=== PATIENT | female | born 1990 | race African-American/Black ===

== ENCOUNTER 2021-01-19 09:53 | Outpatient (CLI) | payer SELFPAY ==
[2021-01-19 10:22] LABS: #Basophils 0.1 thou/uL (0.0-0.2); #Eosinphils 0.1 thou/uL (0.0-0.7); #Lymphocytes 2.5 thou/uL (1.20-3.40); #Monocytes 0.6 thou/uL (0.11-0.59); %Basophils 1.1 % (0.0-1.0); %Eosinophils 1.3 % (0.0-10.0); %Lymphocytes 30.3 % (21.0-51.0); %Monocytes 7.4 % (0.0-10.0); %Neutrophils 59.9 % (42.0-75.0); Hemoglobin 13.5 g/dL (12.0-16.0); Mean Corpuscular HGB CONC 31.3 g/dL (32.0-36.0); Mean Corpuscular Hemoglobin 30.2 pg (27.0-31.0); Mean Corpuscular Volume 96.4 fL (78.0-98.0); Mean Platelet Volume 8.4 fL (7.4-10.4); Platelet Count 320 thou/uL (130-400); RBC Distribution Width 12.3 % (11.5-14.5); Red Blood Cell (RBC) Count 4.47 mill/uL (4.20-5.40); White Blood Cell (WBC) Count 8.3 thou/uL (4.8-10.8)
[2021-01-19 10:24] LABS: Bilirubin Negative (Negative); Blood, Urine Trace (Negative); Glucose, Urine (Dipstick) Negative (Negative); Ketone, Urine Negative (Negative); Leukocyte Small (Negative); Nitrite Negative (Negative); Protein, Urine (Dipstick) Negative (Neg-Trace); Specific Gravity, Urine 1.025 (1.005-1.030); Urobilinogen 0.2 mg/dL (Less than 2); pH, Urine 6.5 (5.0-9.0)
[2021-01-19 10:45] LABS: Clarity Hazy (Clear)
[2021-01-19 10:46] LABS: ALT (SGPT) 21 U/L (8-55); AST (SGOT) 22 U/L (5-34); Albumin 4.2 g/dL (3.5-5.0); Alkaline Phosphatase 45 U/L (40-110); Anion Gap 16 mmol/L (10-20); BUN (Urea Nitrogen) 9 mg/dL (7.0-18.7); Bilirubin, Total 0.3 mg/dL (0.2-1.2); Calc. Creatinine Clearance 0 mL/min (70-130); Calcium 9.4 mg/dL (7.8-10.44); Carbon Dioxide 24 mmol/L (22-29); Cholesterol 199 mg/dl (< 200 Desired); Globulin 3.3 g/dL (2.4-3.5); Glucose 103 mg/dL (70-105); HDL Cholesterol 67 mg/dL (>60 Neg Risk); LDL Cholesterol, Calculated 117 mg/dL; Potassium 4.1 mmol/L (3.5-5.1); Protein, Total 7.5 g/dL (6.0-8.3); Triglycerides 73 mg/dL (Less than 150)
[2021-01-19 10:47] LABS: RBC/HPF 0-3 HPF (0-3); WBC/HPF 0-3 HPF (0-3)
[2021-01-19 10:48] LABS: Bacteria/HPF Rare-Few HPF (None Seen)
[2021-01-19 11:06] LABS: Thyroid Stimulating Hormone 1.4607 uIU/mL (0.35-4.94)
[2021-01-19 11:14] LABS: Chloride 109 mmol/L (98-107); Sodium 145 mmol/L (136-145)
[2021-01-19 16:55] LABS: Hemoglobin A1c 5.6 % (4.0-6.0)
[2021-01-19 17:30] LABS: Free T4 (Free Thyroxine) 0.82 ng/dL (0.70-1.48)
[2021-01-19 17:32] LABS: HIV (1/2) Antibody/Antigen Non-Reactive (NonReactive); HIV 1/2 INDEX 0.18 S/CO (<1.00); Vitamin D, 25 Hydroxy 14.7 ng/ml (> 30.0)
== END 2021-01-19 09:54 | disposition home or self-care (01) ==
LOC: MADLAB 09:53
PROVIDERS: ATTEND Family Medicine
DX: Z00.00 Encounter for general adult medical examination without abnormal findings (principal)
CPT/HCPCS: 36415; 80053; 80061; 81001; 82306; 83036; 84439; 84443; 85025; 87389

== ENCOUNTER 2023-08-26 17:13 | Emergency (ER) | payer OTHER, BC ==
[2023-08-26] MEDS ORDERED: Acetaminophen 500 MG TAB ONE (17:43)
== END 2023-08-26 18:15 | disposition short-term general hospital (02) ==
LOC: MADERS 17:13
DX: O9A.212 Injury, poisoning and certain other consequences of external causes complicating pregnancy, second trimester (principal); S50.11XA Contusion of right forearm, initial encounter; O36.8190 Decreased fetal movements, unspecified trimester, not applicable or unspecified; O13.9 Gestational [pregnancy-induced] hypertension without significant proteinuria, unspecified trimester; V89.2XXA Person injured in unspecified motor-vehicle accident, traffic, initial encounter; W22.11XA Striking against or struck by driver side automobile airbag, initial encounter; Z3A.25 25 weeks gestation of pregnancy; Z79.82 Long term (current) use of aspirin
CPT/HCPCS: 99284